=== PATIENT | female | born 1985 | race Caucasian/White ===

== ENCOUNTER 2017-10-02 18:14 | Emergency (ER) | payer MEDICAID ==
[~2017-10-02] VITALS: Ht 165.1 cm; Wt 77.1 kg
--- NOTE | 2017-10-02 18:22 | NUR ---
PT AMBUALTED TO ER BED 11
[2017-10-02 18:24] VITALS: BP 142/74
--- NOTE | 2017-10-02 18:28 | NUR ---
PATIENT PRESENTS TO ED WITH C/O HEADACHE AND LEFT SIDED NECK PAIN, AWAKE AND ALERT ABLE TO AMBULATE. DENIES N/V/D; PT DENIES ANY FEVER, CP, SOB, OR COUGH AT THIS TIME; PATIENT STATES HEADACHE 5/10 AT THIS TIME; VSS; PATIENT POSITIONED FOR COMFORT; HOB ELEVATED; BEDRAILS UP X2; BED DOWN. ER MD MADE AWARE OF PT STATUS.
[2017-10-02] MEDS: KETOROLAC 30 MG/ML VIAL IVP ONE (18:50)
[2017-10-02] MEDS: NACL 0.9% 1,000 ML IV ONE (18:51)
[2017-10-02 19:14] LABS: BILIRUBIN,URINE NEGATIVE (NEGATIVE); BLOOD, URINE NEGATIVE (NEGATIVE); COLOR,URINE STRAW (YELLOW); LEUKOCYTE ESTERASE ,URINE TRACE (NEGATIVE); NITRITE, URINE NEGATIVE (NEGATIVE); PH,URINE 7.5 (5.0-9.0); UGLUCOSE NEGATIVE (NEGATIVE)
[2017-10-02 19:15] LABS: APPEARANCE,URINE SLIGHTLY HAZY (CLEAR)
--- NOTE | 2017-10-02 19:17 | NUR ---
REPORT GIVEN TO LEHR ATTENDANT NURSE FOR CONTINUE OF CARE, PT IS IN STABLE CONDITION AT THIS TIME.
[2017-10-02 19:22] LABS: RBC,URINE NONE SEEN /HPF (0-5); WBC,URINE 0-5 (RARE) /HPF (0-5)
--- NOTE | 2017-10-02 19:39 | NUR ---
PT LAYING IN BED, STATES HER PAIN IS "BETTER" AFTER PAIN MEDS, WILL CONTINUE TO MONITOR.
[2017-10-02 20:35] VITALS: BP 144/70
--- NOTE | 2017-10-02 20:35 | NUR ---
Patient discharged with v/s stable. Written and verbal after care instructions given and explained. Patient alert, oriented and verbalized understanding of instructions. Ambulatory with steady gait. All questions addressed prior to discharge. ID band removed. Patient advised to follow up with PMD. Rx of NAPROXEN,MACROBID given. Patient educated on indication of medication including possible reaction and side effects. Opportunity to ask questions provided and answered.
== END 2017-10-02 20:35 | disposition home or self-care (01) ==
LOC: MED 18:14
DX: G43.909 Migraine, unspecified, not intractable, without status migrainosus (principal); N39.0 Urinary tract infection, site not specified; Z98.890 Other specified postprocedural states
CPT/HCPCS: 81001; 81025; 96361; 96374; 99284; J1885; J7030

== ENCOUNTER 2017-11-13 08:05 | Emergency (ER) | payer SELFPAY ==
[~2017-11-13] VITALS: Ht 165.1 cm; Wt 77.1 kg
--- NOTE | 2017-11-13 08:07 | NUR ---
PT BIBA TO BED 8 Addendum: 11/13/17 at 0807 by MEDHT PT BIBA ALS TO BED 8
[2017-11-13 08:14] VITALS: BP 108/60
--- NOTE | 2017-11-13 08:30 | NUR ---
32YO F BROUGHT IN BY EMS ; PT WAVED DOWN PD C/O GENERAL WEAKNESS DIZZINESS "LONG TIME NOW" ---ADMITS TO SMOKING METH 2DAYS AGO. PT STATES FEELING 'TIRED'. PT STATES RIGHT SIDE CP X3DAYS AND L EAR PAIN X1 WK BUT DENIES PAIN WHEN ASKED FOR PAIN LEVEL. PT AWAKE ALERT AND ORIENTED TO PERSON, DATE, AND EVENT. ER MD MADE AWARE, WILL CONTINUE TO MONITOR HX--METH ABUSE, BIPOLAR RX---NONE
--- NOTE | 2017-11-13 08:30 | NUR ---
Note undone in EDM - 11/13/17 at 0945 by MEDS 32YO F BROUGHT IN BY EMS ; PT WAVED DOWN PD C/O GENERAL WEAKNESS DIZZINESS "LONG TIME NOW" ---ADMITS TO SMOKING METH 2DAYS AGO. PT STATES FEELING 'TIRED'. PT STATES RIGHT SIDE CP X3DAYS AND L EAR PAIN X1 WK BUT DENIES PAIN WHEN ASKED FOR PAIN LEVEL. PT AWAKE ALERT AND ORIENTED TO PERSON, DATE, AND EVENT. ER MADE AWARE, WILL CONTINUE TO MONITOR HX--METH ABUSE, BIPOLAR RX---NONE
[2017-11-13] MEDS ORDERED: NACL 0.9% 1,000 ML IV ONE (08:40)
[2017-11-13] MEDS ORDERED: KETOROLAC 30 MG/ML VIAL IVP ONE (08:40)
--- NOTE | 2017-11-13 08:47 | NUR ---
lab at bedside
--- NOTE | 2017-11-13 08:47 | NUR ---
emt at bedside doing an ekg
[2017-11-13 09:03] LABS: BASOPHILS % (AUTO) 0.2 % (0.0-2.0); EOSINOPHILS # (AUTO) 0.1 K/uL (0-0.4); EOSINOPHILS % (AUTO) 1.3 % (0.0-4.0); HEMATOCRIT 36.5 % (36-48); HEMOGLOBIN 12.1 g/dL (12.0-16.0); LYMPHOCYTES # (AUTO) 1.6 K/uL (2.5-16.5); LYMPHOCYTES % (AUTO) 23.3 % (20.5-51.1); MEAN CORPUSCULAR HEMOGLOBIN 29 pg (27-31); MEAN CORPUSCULAR HGB CONC 33 g/dL (33-37); MEAN CORPUSCULAR VOLUME 86.8 fL (80-94); MONOCYTES # (AUTO) 0.4 K/uL (0.8-1.0); MONOCYTES % (AUTO) 5.8 % (1.7-9.3); NEUTROPHILS # (AUTO) 4.6 K/uL (1.8-7.7); NEUTROPHILS % (AUTO) 69.4 % (42.2-75.2); PLATELET COUNT (AUTO) 204 K/uL (140-450); WHITE BLOOD COUNT (AUTO) 6.7 K/uL (4.8-10.8)
[2017-11-13 09:11] LABS: BARBITURATE, URINE NEG. ng/ml (NEG <=200); BENZODIAZEPINE, URINE NEG. ng/mL (NEG <=200); CANNABINOID, URINE NEG. ng/mL (NEG <=50); COCAINE, URINE NEG. ng/mL (NEG <=300); OPIATE, URINE NEG. ng/mL (NEG <=2000); PHENCYCLIDINE SCREEN,URINE NEG. ng/mL (NEG <=25)
[2017-11-13 09:12] LABS: BILIRUBIN,URINE 1+ (NEGATIVE); BLOOD, URINE NEGATIVE (NEGATIVE); COLOR,URINE ORANGE (YELLOW); LEUKOCYTE ESTERASE ,URINE TRACE (NEGATIVE); NITRITE, URINE NEGATIVE (NEGATIVE); UGLUCOSE NEGATIVE (NEGATIVE)
[2017-11-13 09:13] LABS: ANION GAP 12.1 (8-16); CARBON DIOXIDE 26.2 mmol/L (21-32); CREATININE 0.8 mg/dL (0.6-1.3); POTASSIUM 3.3 mmol/L (3.5-5.1)
[2017-11-13 09:19] LABS: ALBUMIN 3.5 g/dL (3.4-5.0); TOTAL BILIRUBIN 0.6 mg/dL (0.0-1.0)
[2017-11-13 09:27] LABS: RBC,URINE 0-5 (RARE) /HPF (0-5); WBC,URINE 0-5 (RARE) /HPF (0-5)
[2017-11-13 09:28] LABS: APPEARANCE,URINE SLIGHTLY HAZY (CLEAR)
--- NOTE | 2017-11-13 09:56 | NUR ---
PT PROFIDED WITH JUICE AND CRACKERS
[2017-11-13 11:36] VITALS: BP 110/65
--- NOTE | 2017-11-13 11:36 | NUR ---
Patient discharged with v/s stable. Written and verbal after care instructions given and explained. Patient verbalized understanding. Ambulatory with steady gait. All questions addressed prior to discharge. Advised to follow up with PMD.
== END 2017-11-13 11:36 | disposition home or self-care (01) ==
LOC: MED 08:05
DX: S80.811A Abrasion, right lower leg, initial encounter (principal); F15.10 Other stimulant abuse, uncomplicated; F31.9 Bipolar disorder, unspecified; Z59.0 Homelessness; W22.8XXA Striking against or struck by other objects, initial encounter; Y93.89 Activity, other specified; Y99.8 Other external cause status; Y92.89 Other specified places as the place of occurrence of the external cause
CPT/HCPCS: 36415; 71045; 80053; 80305; 81001; 81025; 82948; 84484; 85025; 93005; 96361; 96374; 99285; J1885; J7030; Q0092